=== PATIENT | female | born 1975 | race Caucasian/White ===

== ENCOUNTER 2022-05-05 14:21 | Emergency (ER) | payer OTHER ==
[~2022-05-05] VITALS: Ht 172.7 cm; Wt 65.9 kg
[~2022-05-05 14:21] MED LIST: AMITRIPTYLINE H10 M1 PO; CLEOCIN HC150 MG/CAP PO; LORTAB 5/500 501 TAB PO; MULTIVITAMIN FO1 CAP PO; NAPROSYN500 MG PO; NEURONTIN400 MG/CAP PO; NORCO 325 MG-7.1 TAB PO; VITAMIN C500 MG PO
[2022-05-05 14:35] VITALS: TEMP 97.5
[2022-05-05] MEDS ORDERED: CLEOCIN HCL300 MG PO (14:54)
[2022-05-05] MEDS ORDERED: NORCO 325 MG-51 TAB PO (14:55)
[2022-05-05 15:10] VITALS: BP 118/77; PULSE 90
== END 2022-05-05 15:10 | disposition home or self-care (01) ==
LOC: COL.ER 14:21
DX: K12.1 Other forms of stomatitis (principal); Z88.0 Allergy status to penicillin

== ENCOUNTER 2023-01-12 15:05 | Emergency (ER) | payer OTHER ==
[~2023-01-12] VITALS: Ht 172.7 cm; Wt 68.2 kg
[~2023-01-12 15:05] MED LIST changes: +CLEOCIN HCL300 MG PO; +NORCO 325 MG-51 TAB PO
[2023-01-12] MEDS ORDERED: NORCO 325 MG-51 TAB PO (16:05)
[2023-01-12 16:37] VITALS: BP 136/78; PULSE 97; TEMP 98.4
== END 2023-01-12 16:18 | disposition home or self-care (01) ==
LOC: COL.ER 15:05
DX: M54.6 Pain in thoracic spine (principal); G89.29 Other chronic pain
CPT/HCPCS: J1885